=== PATIENT | male | born 1950 | race Caucasian/White ===

== ENCOUNTER 2016-12-23 09:04 | Emergency (ER) | payer BC ==
[2016-12-23 09:24] VITALS: BP 143/87
--- NOTE | 2016-12-23 09:45 | UC ---
Bite Injury/Animal HPI - HPI Summary HPI Summary: TICK BITE LEFT UPPER CHEST WALL X 2 DAYS TICK WAS REMOVED BY THE PT. NO FEVER, NO CHILL, NO RASH OR JOINT PAIN - History of Current Complaint Chief Complaint: [place] Stated Complaint: TICK Time Seen by Provider: 12/23/16 09:35 Hx Obtained From: Patient Onset/Duration: Gradual Onset, Lasting Days - 2, Resolved Type of Bite: Wild Animal - TICK Has Animal Been Immunized?: N/A Aggravating Factor(s): Nothing Alleviating Factor(s): Nothing Associated Signs And Symptoms: Positive: Erythema. Negative: Fever, Drainage, Swelling, Lymphadenopathy, Numbness/Tingling, Limited ROM Animal Available for Observation: Yes Animal Control Notified: No - Allergies/Home Medications Allergies/Adverse Reactions: Allergies Allergy/AdvReac Type Severity Reaction Status Date / Time Hydrocodone AdvReac Dizziness Verified 12/23/16 09:26 Home Medications: Home Medications Cyanocobalamin TAB* [Vitamin B12 TAB*] 500 mcg PO DAILY 12/23/16 [History Confirmed 12/23/16] PMH/Surg Hx/FS Hx/Imm Hx Endocrine History: Hypothyroidism Cardiovascular History: Hypertension - Surgical History Surgical History: Yes Surgery Procedure, Year, and Place: 2 hip surgeries. varicocele. elbow. hernia X2. 1968 STEEL PINS IN BOTH HIPS; pins removed 1970. SX FOR PIN REMOVAL. 2011--RIGHT HIP REPLACEMENT; left knee 03/2016 - Family History Known Family History: Positive: None, Hypertension - Social History Alcohol Use: Daily Alcohol Amount: wine Substance Use Type: None Smoking Status (MU): Current Some Day Smoker Type: Cigars Amount Used/How Often: occasional - Immunization History Most Recent Tetanus Shot: 04/24/14 Review of Systems Constitutional: Negative Skin: Rash Eyes: Negative ENT: Negative Respiratory: Negative Cardiovascular: Negative Is Patient Immunocompromised?: No All Other Systems Reviewed And Are Negative: Yes Physical Exam Triage Information Reviewed: Yes Appearance: Well-Appearing, No Pain Distress, Well-Nourished Vital Signs: Initial Vital Signs Temp 98.1 F 12/23/16 09:17 Pulse 98 12/23/16 09:17 Resp 16 12/23/16 09:17 BP 143/87 12/23/16 09:17 Vital Signs Reviewed: Yes Eyes: Positive: Conjunctiva Clear ENT: Positive: Normal ENT inspection, Hearing grossly normal, Pharynx normal Neck exam: Normal Neck: Positive: Supple, Nontender, No Lymphadenopathy Respiratory: Positive: Chest non-tender, Lungs clear, Normal breath sounds Cardiovascular: Positive: RRR, No Murmur, Pulses Normal Neurological: Positive: Alert Skin: Positive: rashes - MILD ERYTHEMA OF THE TICK SITE LEFT UPPER CHEST WALL Bite Injury Course/Dx - Differential Dx/Diagnosis Provider Diagnoses: TICK BITE CHEST WALL Discharge - Discharge Plan Condition: Stable Disposition: HOME Prescriptions: DOXYcycline CAP(*) [DOXYcycline 100MG CAP(*)] 200 mg PO ONCE #2 cap Patient Education Materials: Tick Bite (ED) Referrals: Leonidas Parry MD [Primary Care Provider] - If Needed
== END 2016-12-23 09:50 | disposition home or self-care (01) ==
LOC: UCCORT 09:04
DX: S20.362A Insect bite (nonvenomous) of left front wall of thorax, initial encounter (principal); W57.XXXA Bitten or stung by nonvenomous insect and other nonvenomous arthropods, initial encounter; Y92.9 Unspecified place or not applicable; F17.290 Nicotine dependence, other tobacco product, uncomplicated
CPT/HCPCS: 99212; G0463